=== PATIENT | female | born 1980 | race American Indian/Alaskan Native ===

== ENCOUNTER 2021-12-06 01:36 | Emergency (ER) | payer SELFPAY ==
[2021-12-06 05:10] LABS: Basophils # (Auto) 0.1 K/mm3 (0.0-0.1); Eosinophils % (Auto) 1.2 % (0.0-4.3); Lymphocytes # (Auto) 0.8 K/mm3 (1.2-5.4); Lymphocytes % (Auto) 21.5 % (13.4-35.0); Mean Corpuscular HGB Conc 29 % (30-34); Monocytes # (Auto) 0.3 K/mm3 (0.0-0.8); Monocytes % (Auto) 7.2 % (0.0-7.3); Platelet Count 179 K/mm3 (140-440); Red Blood Count 4.35 M/mm3 (3.65-5.03)
[2021-12-06 05:18] LABS: Hematocrit 29.4 % (30.3-42.9); Hemoglobin 8.6 gm/dl (10.1-14.3); Mean Corpuscular Volume 68 fl (79-97); Red Cell Distribution Width 22.3 % (13.2-15.2)
[2021-12-06 05:26] LABS: Blood Urea Nitrogen 4 mg/dL (7-17); Calcium 8.9 mg/dL (8.4-10.2); Hemolysis Index 2
[2021-12-06 05:27] LABS: BUN/Creatinine Ratio 8
[2021-12-06] MEDS ORDERED: cloNIDine 0.2 MG TAB PO ONE (06:09)
--- NOTE | 2021-12-06 06:09 | Emergency Department Report ---
<CHRISRAJ Tsai - Last Filed: 12/06/21 06:10> ED General Adult HPI - General Chief complaint: Psych Stated complaint: PSYCH EVAL PUI?: No Time Seen by Provider: 12/06/21 05:48 Source: patient Mode of arrival: Ambulatory Limitations: No Limitations - History of Present Illness Initial comments: This is a 40 Y female with medical history of hypertension also diabetes who is his current who blood pressure medication came in today with concern that she is more depressed than usual. Patient is that she has been self-medicating herself with alcohol for her depression. Patient denies any hallucination and also denies homicidal or suicidal ideation. Patient denies any other symptoms. Patient denies fever chill night sweat dizziness blurred vision lightheadedness headache tinnitus ear pain runny nose sore throat loss of taste loss smell chest pain palpitation short of breath cough abdominal pain nausea vomiting diarrhea constipation joint pain muscle pain new rash and heat or cold intolerance. Patient states that her last alcohol intake was right before coming to here. - Related Data Allergies Allergy/AdvReac Type Severity Reaction Status Date / Time lisinopril Allergy Unknown Verified 12/06/21 04:39 ED Review of Systems Comment: All other systems reviewed and negative Constitutional: no symptoms reported, see HPI Eyes: as per HPI ENT: as per HPI Respiratory: no symptoms reported, see HPI Cardiovascular: as per HPI Endocrine: no symptoms reported, see HPI Gastrointestinal: as per HPI Genitourinary: as per HPI Musculoskeletal: as per HPI Skin: as per HPI Neurological: as per HPI Psychiatric: as per HPI, depression. denies: auditory hallucinations, visual hallucinations, homicidal thoughts, suicidal thoughts Hematological/Lymphatic: as per HPI ED Past Medical Hx - Past Medical History Previous Medical History?: Yes Hx Hypertension: Yes (NO MEDICATIONS) Hx Diabetes: Yes - Surgical History Past Surgical History?: No - Social History Smoking Status: Unknown if ever smoked Substance Use Type: None ED Physical Exam - General Limitations: No Limitations General appearance: alert, in no apparent distress - Head Head exam: Present: atraumatic, normocephalic, normal inspection - Eye Eye exam: Present: normal appearance, PERRL, EOMI Pupils: Present: normal accommodation - ENT ENT exam: Present: normal exam, mucous membranes moist - Neck Neck exam: Present: normal inspection, full ROM - Respiratory Respiratory exam: Present: normal lung sounds bilaterally - Cardiovascular Cardiovascular Exam: Present: regular rate, normal rhythm, normal heart sounds - GI/Abdominal GI/Abdominal exam: Present: soft - Extremities Exam Extremities exam: Present: normal inspection, full ROM, normal capillary refill - Back Exam Back exam: Present: normal inspection, full ROM - Neurological Exam Neurological exam: Present: alert, oriented X3, CN II-XII intact - Psychiatric Psychiatric exam: Present: normal affect, normal mood, depressed, flat affect. Absent: agitated, anxious, manic, homicidal ideation, suicidal ideation - Skin Skin exam: Present: warm, normal color ED Course - Reevaluation(s) Reevaluation #1: 12/06/21 06:12 Patient is currently medically cleared to be evaluated by behavioral health. ED Medical Decision Making - Lab Data Result diagrams: 12/06/21 04:44 12/06/21 04:44 ED Disposition Clinical Impression: Elevated blood pressure reading, Depression Disposition: 01 HOME / SELF CARE / HOMELESS Condition: Stable Instructions: Hypertension During , [id number], Living With Depression <STEPHEN MOON - Last Filed: 12/06/21 14:15> ED Review of Systems ROS: Stated complaint: PSYCH EVAL Other details as noted in HPI ED Course Vital Signs 12/06/21 12/06/21 12/06/21 04:37 04:46 06:43 Temperature 99.1 F 99.2 F Pulse Rate 100 H 88 Respiratory 18 16 Rate Blood Pressure 230/136 Blood Pressure 230/136 216/105 [Left] Blood Pressure 214/141 [Right] O2 Sat by Pulse 100 100 Oximetry 12/06/21 12/06/21 12/06/21 06:44 10:22 10:23 Temperature 97.6 F Pulse Rate 88 101 H Respiratory 18 Rate Blood Pressure 216/105 Blood Pressure 143/86 [Left] Blood Pressure [Right] O2 Sat by Pulse 99 99 Oximetry ED Medical Decision Making - Lab Data Result diagrams: 12/06/21 04:44 12/06/21 04:44 Critical care attestation.: If time is entered above; I have spent that time in minutes in the direct care of this critically ill patient, excluding procedure time. ED Disposition Is pt being admited?: No Does the pt Need Aspirin: No
[2021-12-06 06:54] LABS: Color,Urine Colorless (Yellow)
[2021-12-06 06:59] LABS: WBC,Urine < 1.0 /HPF (0.0-6.0)
[2021-12-06 07:04] LABS: Amphetamine Screen,Urine Negative; Benzodiazepines Screen,Urine Negative; Cannabinoid Screen,Urine Negative; Cocaine Screen,Urine Negative; Methadone Screen,Urine Negative; Opiate Screen,Urine Negative
[2021-12-06 10:24] VITALS: BP 143/86
--- NOTE | 2021-12-06 14:12 | Emergency Department Report ---
Blank Doc - Documentation Documentation: Patient presented to the emergency for hypertension and acute depression. Anurag loza no longer depressed
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
== END 2021-12-06 15:17 | disposition home or self-care (01) ==
LOC: ED 01:36
DX: F32.9 Major depressive disorder, single episode, unspecified (principal); R03.0 Elevated blood-pressure reading, without diagnosis of hypertension; Z20.822 Contact with and (suspected) exposure to COVID-19; I10 Essential (primary) hypertension; E11.9 Type 2 diabetes mellitus without complications; Z98.890 Other specified postprocedural states; Z79.899 Other long term (current) drug therapy; Z88.8 Allergy status to other drugs, medicaments and biological substances
CPT/HCPCS: 36415; 80048; 80307; 81001; 84703; 85025; 99284; U0003; 80320; G0480

== ENCOUNTER 2021-12-09 19:30 | Emergency (ER) | payer MEDICAID ==
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
[2021-12-10] MEDS ORDERED: cloNIDine 0.2 MG TAB PO ONE (09:05)
[2021-12-10 10:44] VITALS: BP 190/113
== END 2021-12-10 09:01 | disposition home or self-care (01) ==
LOC: ED 19:30
DX: S00.11XA Contusion of right eyelid and periocular area, initial encounter (principal); R51.9 Headache, unspecified; I10 Essential (primary) hypertension; E11.9 Type 2 diabetes mellitus without complications; Y08.89XA Assault by other specified means, initial encounter; Y93.89 Activity, other specified; Y92.89 Other specified places as the place of occurrence of the external cause; Y99.8 Other external cause status
CPT/HCPCS: 99282